=== PATIENT | male | born 1955 | race Caucasian/White ===

== ENCOUNTER 2017-03-31 18:35 | Emergency (ER) | payer BC ==
[~2017-03-31] VITALS: Ht 175.3 cm; Wt 83.9 kg
[2017-03-31 18:40] VITALS: TEMP 36.8; Ht 175.3 cm; Wt 83.9 kg
[2017-03-31] MEDS ORDERED: ATOR-24 PO (18:59)
[2017-03-31] MEDS ORDERED: ASPI81TA28 PO (18:59)
[2017-03-31] MEDS ORDERED: KETOROLAC TROMETHAMINE 60 MG/2 ML VIAL IM STA (19:04)
[2017-03-31] MEDS ORDERED: DEXAMETHASONE **PF** INJ 10 MG/ML VIAL IM ONE (19:15)
[2017-03-31] MEDS ORDERED: MoRPHine SULFATE 4 MG/ML 1 ML CARP\\VIAL IM ONE (19:15)
--- NOTE | 2017-03-31 19:50 | DIAGNOSTIC IMAGING REPORT ---
L-SPINE MIN 4 VIEWS ROUTINE CLINICAL HISTORY: Left lower back pain radiating into left lower extremity. COMPARISON: None FINDINGS: An 8 mm calcification projects over the mid aspect of the right renal shadow. This suggest a renal calculus. Alignment of the lumbar spine is anatomic. No acute fracture or suspicious lesion is identified. There is moderate multilevel disc space narrowing with osteophytosis. Moderate multilevel facet arthrosis is present. IMPRESSION: 1. No acute lumbar spine fracture or subluxation. 2. Moderate multilevel degenerative disc disease and facet arthrosis of the lumbar spine. 3. Suspected 8 mm right renal calculus. Electronically signed by: Ender Johnson M.D. 03/31/2017 7:49 PM Dictated Date/Time: 03/31/2017 7:47 PM
[2017-03-31] MEDS ORDERED: PRED50TA PO (20:06)
[2017-03-31] MEDS ORDERED: CYCL10TA6 PO (20:06)
[2017-03-31] MEDS ORDERED: OXYC1TAB3 PO (20:06)
[2017-03-31] MEDS ORDERED: OXYCODONE IR HOME PACK PO ONE (20:15)
[2017-03-31] MEDS ORDERED: FLEXERIL HOME PACK 10 MG VIAL PO ONE (20:15)
[2017-03-31 20:23] VITALS: BP 130/68; PULSE 76; O2SAT 98
--- NOTE | 2017-03-31 23:16 | EMERGENCY ROOM VISIT NOTE ---
History First contact with patient: 18:44 Chief Complaint: BACK PAIN Stated Complaint: PAIN IN LOWER BACK/ BURNING INNER LEG History of Present Illness The patient is a 61 year old male who presents to the Emergency Room with complaints of pain in his left-sided low back that has been slowly worsening over the past 3 or 4 days. 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 He states the pain is worse with certain positions and movements. The pain does radiate down his left leg. He does not have difficulty or changes using the bathroom. He has been taking Advil at home with minimal improvement. The patient does not have a history of chronic back pain. No chest pain, chest tightness, shortness of breath, or abdominal pain. He rates his discomfort an 8/10. He has been able to ambulate. Review of Systems More than 10 systems were reviewed and otherwise negative with the exception of history of present illness. Past Medical/Surgical History No pertinent chronic medical disease Family History No pertinent family history Social History Smoking Status: Never Smoker Housing Status: lives with family Current/Historical Medications Scheduled Aspirin (Aspirin Ec), 81 MG PO DAILY Atorvastatin (Lipitor), 40 MG PO DAILY Cyclobenzaprine Hcl (Flexeril), 10 MG PO TID Oxycodone Immediate Rel Tab (Roxicodone Ir), 1-2 TAB PO Q6 Prednisone (Prednisone), 50 MG PO DAILY Physical Exam Vital Signs Date Time Temp Pulse Resp B/P (MAP) Pulse Ox O2 Delivery O2 Flow Rate FiO2 03/31/17 20:23 76 18 130/68 98 03/31/17 18:40 36.8 79 18 144/99 96 Room Air Physical Exam VITALS: Vitals are noted on the nurse's note and reviewed by myself. Vital signs stable. GENERAL: Well-developed, well-nourished, white male, who is in no acute distress and resting comfortably. Patient is cooperative with the examination. NECK: Supple without nuchal rigidity. No lymphadenopathy. No thyromegaly. Cervical spine is nontender. HEART: Regular rate and rhythm without murmurs gallops or rubs. LUNGS: Clear to auscultation bilaterally without wheezes, rales or rhonchi. No retractions or accessory muscle use. MUSCULOSKELETAL: No muscle atrophy, erythema, or edema noted. Tenderness is appreciated across the left side lower lumbar spine and left SI joint. No saddle paresthesias. Positive left straight leg raise. NEURO: Patient was alert and oriented to person place and time. CN II through XII grossly intact. Deep tendon reflexes 2+ throughout. Medical Decision & Procedures ER Provider Diagnostic Interpretation: L-SPINE MIN 4 VIEWS ROUTINE CLINICAL HISTORY: Left lower back pain radiating into left lower extremity. COMPARISON: None FINDINGS: An 8 mm calcification projects over the mid aspect of the right renal shadow. This suggest a renal calculus. Alignment of the lumbar spine is anatomic. No acute fracture or suspicious lesion is identified. There is moderate multilevel disc space narrowing with osteophytosis. Moderate multilevel facet arthrosis is present. IMPRESSION: 1. No acute lumbar spine fracture or subluxation. 2. Moderate multilevel degenerative disc disease and facet arthrosis of the lumbar spine. 3. Suspected 8 mm right renal calculus. Medications Administered Medications (Trade) Dose Ordered Sig/Henry Route Start Time Stop Time Status Last Admin Dose Admin Dexamethasone Sodium Phosphate (Dexamethasone Inj Pf) 10 mg NOW ONCE IM 03/31/17 19:15 03/31/17 19:16 DC 03/31/17 19:17 10 MG Morphine Sulfate (MoRPHine SULFATE INJ) 4 mg NOW ONCE IM 03/31/17 19:15 03/31/17 19:16 DC 03/31/17 19:18 4 MG Ketorolac Tromethamine (Toradol Inj) 60 mg NOW STAT IM 03/31/17 19:04 03/31/17 19:06 DC 03/31/17 19:17 60 MG Cyclobenzaprine HCl (FLEXERIL 10MG Home Pack) 1 homepack UD ONCE PO 03/31/17 20:15 03/31/17 20:16 DC 03/31/17 20:18 1 HOMEPACK Oxycodone HCl (Roxicodone Immediate Rel 5MG Home Pack) 1 homepack UD ONCE PO 03/31/17 20:15 03/31/17 20:16 DC 03/31/17 20:18 1 HOMEPACK ED Course Physical exam and history were performed. Nursing notes, EMR, and Medication List were personally reviewed. Patient appears to have left low back pain radiating down his left leg. The patient reflexes are intact, but he does have a positive should leg raise. He is accompanied today by his , and was given 4 mg IM morphine, 60 mg IM Toradol, and 10 mg IM Decadron. X-rays were performed. The patient's x-rays do show some degenerative disc disease but no acute fractures or dislocations. He was informed of an incidental renal calculi. On reevaluation the patient felt significantly better after pain control. He was able to rest quite comfortably in his emergency department bed, and continues without significant neurologic deficit on exam. Overall the patient appears stable for discharge home. I suspect that he has sciatica, and I will treat him with a course of oxycodone, Flexeril, and prednisone. He may also continue [id number] analgesics. The patient was asked to follow with his PCP for further care and management, as he may require referral for physical therapy. The patient was pleased with this plan and voiced understanding. He rated his discomfort a 1/10 at the time of departure, and was discharged home under the care of his who is acting as the transporter driver. The chart was completed utilizing [employer] Voice Recognition Software. Grammatical errors, random word insertions, pronoun errors, and incomplete sentences are an occasional consequence of this system due to software limitations, ambient noise, and hardware issues. Any formal questions or concerns about the content, text, or information contained within the body of this dictation should be directly addressed to the provider for clarification. . Medical Decision Differential diagnosis: Etiologies such as musculoskeletal, disc herniation, fracture, aortic disease, metastatic disease, cord compression, discitis, infection, renal colic, gastrointestinal, acute exacerbation of chronic back pain, sciatica, cauda equina, as well as others were entertained. [place] Drug Monitoring Program Search Results: patient reviewed within database, no issues identified Blood Pressure Screening Patient's blood pressure: Elevated blood pressure Blood pressure disposition: Elevated BP felt to be situational Impression Primary Impression: Low back pain with sciatica Departure Information Dispostion Home / Self-Care Condition GOOD Prescriptions Prednisone (Prednisone) 50 Mg Tab 50 MG PO DAILY for 4 Days, #4 TAB Prov: Mark Nelson PA-C 03/31/17 Cyclobenzaprine Hcl (FLEXERIL) 10 Mg Tab 10 MG PO TID for 7 Days, #21 TAB Prov: Mark Nelson PA-C 03/31/17 Oxycodone Immediate Rel Tab (ROXICODONE IR) 5 Mg Tab 1-2 TAB PO Q6 for Pain, #20 TAB Prov: Mark Nelson PA-C 03/31/17 Forms HOME CARE DOCUMENTATION FORM, IMPORTANT VISIT INFORMATION Patient Instructions My [facility] Additional Instructions You were seen and evaluated today on an emergency basis only. This is not a substitute for, or an effort to provide, complete comprehensive medical care. It is not possible to recognize and treat all injuries or illnesses in a single emergency department visit. For this reason it is recommended that you followup with your primary care physician next week for ongoing care and evaluation. For baseline pain relief you may alternate ibuprofen and acetaminophen every 4 hours for pain control. Take 600 mg ibuprofen (Advil) and then 4 hours later take 1000 mg acetaminophen (Tylenol). Do not take more than 3000 mg acetaminophen in a single day. Oxycodone (OxyIR) 5mg: Take ONE or TWO pills every SIX hours for breakthrough pain. Avoid alcohol, operating machinery or dangerous equipment, working on ladders or roofs, DRIVING, or situations where being under the influence may be dangerous. It is recommended to use an [id number] stool softener such as Colace, 100mg twice daily while taking this medication to avoid constipation. Flexeril 1 tablet up to 3 times a day as needed for muscle spasms. No driving, working, or alcohol use with Flexeril. Take prednisone as prescribed You are welcome to return to the emergency department anytime with new, worsening, or concerning symptoms.
== END 2017-03-31 20:25 | disposition home or self-care (01) ==
LOC: C.EDB 18:37 → C.EDD 20:25
DX: M54.42 Lumbago with sciatica, left side (principal); Z79.82 Long term (current) use of aspirin; Z79.899 Other long term (current) drug therapy